=== PATIENT | male | born 1950 | race Caucasian/White ===

== ENCOUNTER → 2017-04-20 | Outpatient (CLI) | payer MEDICARE, OTHER | END | disposition home or self-care (01) | LOC: GMAB 10:35 | PROVIDERS: ATTEND Family Medicine | DX: Z12.5 Encounter for screening for malignant neoplasm of prostate (principal); I10 Essential (primary) hypertension; R53.83 Other fatigue | CPT/HCPCS: 84403; 84443; 84550; G0103 ==

== ENCOUNTER → 2017-04-26 | Outpatient (CLI) | payer MEDICARE, OTHER ==
--- NOTE | 2017-04-29 18:40 | MRI ---
EXAM DESCRIPTION: Lumbar Spine w/o Contrast CLINICAL HISTORY: LUMBAR RADICULOPATHY COMPARISON: None. TECHNIQUE: Multiplanar, multiple standard sequences, non contrast MRI, lumbar spine. FINDINGS: L5-S1: Disc desiccation. Posterior broad-based 3 mm bulge. Left-sided grade 1 Modic endplate reaction with disc spur bulge into the left foramen with foraminal stenosis possible impingement left L5 nerve. Moderate right foraminal narrowing abutting the right L5 nerve.. Bilateral posterior flavum ligament hypertrophy. L4-5: Disc desiccation with anterior bulging and endplate ridging, Modic type II endplate reactive changes. Minimal posterior disc space loss. Posterior broad-based 4 mm disc bulge with left paracentral 7 mm protrusion impressing on the thecal sac and the descending left L5 nerve. Bilateral flavum ligament hypertrophy. Grade 1 retrolisthesis. Left paracentral AP canal diameter 9 mm. Moderate to severe left foraminal narrowing. Moderate right foraminal narrowing. L3-4: Moderate disc desiccation and disc space loss in the midline into the right of midline. Modic type II endplate reactive changes midline to the right of midline. Anterior disc bulge and endplate ridging. Posterior L4 Schmorl's node. Posterior mild broad-based disc bulge with midline annular fissure. Grade 1 anterolisthesis. Disc spur complex on the right encroaching on the right foramen with mild stenosis and impingement of the exiting right L3 nerve. Mild to moderate left foraminal narrowing. L2-3: Disc desiccation with anterior bulging and endplate ridging. Trace retrolisthesis. Tiny posterior bulge. Bilateral mild facet hypertrophy and posterior ligament hypertrophy mild left foraminal narrowing mild to moderate right foraminal narrowing. No canal stenosis. L1-2: Anterior disc bulge and endplate ridging. Moderate disc space loss and disc desiccation. Tiny posterior bulge midline bulge abutting the thecal sac. Minimal hypertrophy of the flavum ligaments. No significant foraminal narrowing. Mild canal narrowing. T12-L1: Minimal disc desiccation with no disc space loss. Tiny anterior bulge. Conus terminates at L1. Foramina are patent. Minimal flavum ligament hypertrophy. Mild canal narrowing. L2-L4 levoscoliosis. Paravertebral soft tissues are unremarkable.. Normal marrow signal in the remaining vertebral bodies and the posterior elements. Vertebral bodies are not compressed at any level. IMPRESSION: 1. Spondylosis on the left at L5-S1 with encroachment on the left neural foramen and possibly left L5 nerve. Correlate for left L5 radiculopathy. 2. Moderate spondylosis L4-5. Left paracentral disc protrusion encroaching on the thecal sac and the descending left L5 nerve. Correlate for left L5 radiculopathy. Mild canal stenosis. Grade 1 retrolisthesis. 3. Moderate spondylosis at L3-4 midline and to the right of midline. Grade 1 anterolisthesis. Posterior broad-based disc bulge, disc spur complex encroaching on the right L3 nerve in the foramina. Correlate for right L3 radiculopathy. Electronically signed by: Oswaldo Fields MD 04/29/2017 6:39 PM CDT
== END ==
LOC: MRI 08:53
PROVIDERS: ATTEND Family Medicine
DX: M47.27 Other spondylosis with radiculopathy, lumbosacral region (principal); M51.16 Intervertebral disc disorders with radiculopathy, lumbar region

== ENCOUNTER 2017-06-02 07:41 | Emergency (ER) | payer MEDICARE, OTHER ==
--- NOTE | 2017-06-02 07:52 | ED.PDOC ---
History of Present Illness - General Chief Complaint: Neuro Symptoms/Deficits Stated Complaint: L facial droop and L arm weakness Time Seen by Provider: 06/02/17 07:43 Source: patient, RN notes reviewed, Vital Signs reviewed, family Exam Limitations: no limitations - History of Present Illness Initial Comments: Patient woke up at ~ 7:30 this morning and noticed that his left arm was not working right and his speech was off. Also noticed a left facial droop. No history of similar episodes in the past but his father did have a stroke. He did get up about 3am to go to the bathroom and did not notice any problems at that time. No ACEVEDO, chest pain or SOB Did see his doctor on and had what sounds like an epidural steroid injection for sciatica. Timing/Duration: 1/2 hour Severity: moderate Improving Factors: nothing Worsening Factors: nothing Associated Symptoms: slurred speech, weakness - left arm Allergies/Adverse Reactions: Allergies NO KNOWN ALLERGY Allergy (Verified 06/02/17 07:43) Review of Systems - Review of Systems Constitutional: States: no symptoms reported. Denies: chills, fever Respiratory: States: no symptoms reported. Denies: cough, short of breath Cardiology: States: no symptoms reported. Denies: chest pain Gastrointestinal/Abdominal: States: no symptoms reported Musculoskeletal: States: see HPI Skin: States: no symptoms reported Neurological: States: weakness - L facial droop and L arm weakness, other - slurred speech All other Systems: No Change from Baseline Family Medical History - Family History Father Living Status: Hx Family Stroke: Yes Physical Exam - Physical Exam General Appearance: Alert, Comfortable, No apparent distress, Well Developed, Well Groomed, Well Hydrated, Well Nourished Eye Exam: bilateral normal ENT Exam: normal ENT inspection, hearing grossly normal Neck: non-tender, full range of motion, supple, normal inspection Respiratory: lungs clear, normal breath sounds, no respiratory distress, no accessory muscle use Cardiovascular/Chest: normal peripheral pulses, regular rate, rhythm, no edema, no gallop, no JVD, no murmur Peripheral Pulses: dorsalis pedis,right: 2+, dorsalis pedis,left: 2+ Gastrointestinal/Abdominal: normal bowel sounds, non tender, soft, no organomegaly, no pulsatile mass Extremities Exam: non-tender, normal range of motion, no evidence of injury Mental Status: alert, oriented x 3 head banquet waiter/waitress Exam: normal hearing, PERRL, abnormal speech - slurred, facial droop - Left Coordination/Gait: abnormal gait - slightly unsteady Motor/Sensory: no sensory deficit, pronator drift (L), weak motor strength LUE Skin Exam: normal color, warm/dry Comments: Vital Signs 06/02/17 07:52 Temperature 97.5 F L Pulse Rate [ 69 Left Radial] Respiratory 18 Rate Blood Pressure 183/108 [Right Arm] O2 Sat by Pulse 96 Oximetry Progress - Progress Progress: 06/02/17 08:[address] Polanco with the tele-neurologiy service. Since last known well was 3am it is too late for TpA. Will transfer to [facility]. Spoke with Dr. Shaikh @ [place] who accepted patient in transfer. - Results/Orders Results/Orders: Laboratory Tests 06/02/17 06/02/17 06/02/17 08:10 08:10 08:10 WBC 8.0 RBC 4.95 Hgb 15.0 Hct 45.3 MCV 91.6 MCH 30.3 MCHC 33.1 RDW 14.7 H Plt Count 143 MPV 9.2 Absolute Neuts (auto) 6.10 Absolute Lymphs (auto) 1.60 Absolute Monos (auto) 0.40 Absolute Eos (auto) 0.00 Absolute Basos (auto) 0.00 Neutrophils % 75.4 Lymphocytes % 19.3 L Monocytes % 4.9 Eosinophils % 0.1 L Basophils % 0.3 PT 10.5 INR 0.930 PTT (SP) 27.6 Sodium 138 Potassium 4.1 Chloride 104 Carbon Dioxide 26 Anion Gap 12.1 BUN 18 Creatinine 0.71 BUN/Creatinine Ratio 25.4 H Random Glucose 108 H Serum Osmolality 278.1 Calcium 9.5 Total Bilirubin 0.5 AST 32 ALT 34 Alkaline Phosphatase 57 Creatine Kinase Troponin I Serum Total Protein 7.3 Albumin 4.5 Globulin 2.8 Albumin/Globulin Ratio 1.6 06/02/17 08:10 WBC RBC Hgb Hct MCV MCH MCHC RDW Plt Count MPV Absolute Neuts (auto) Absolute Lymphs (auto) Absolute Monos (auto) Absolute Eos (auto) Absolute Basos (auto) Neutrophils % Lymphocytes % Monocytes % Eosinophils % Basophils % PT INR PTT (SP) Sodium Potassium Chloride Carbon Dioxide Anion Gap BUN Creatinine BUN/Creatinine Ratio Random Glucose Serum Osmolality Calcium Total Bilirubin AST ALT Alkaline Phosphatase Creatine Kinase 149 Troponin I < 0.02 Serum Total Protein Albumin Globulin Albumin/Globulin Ratio - EKG/XRAY/CT EKG: Daryn, Sinus, nonspecific ST T wave Chg Comments: Rate 55 - normal per patient CT Ordered: Yes - No acute intracrainial abnormality per Radiologist Stroke Information - Onset of Symptoms Symptoms of Stroke: Aphasia, Weakness of limb Stroke Onset of Symptoms Date: 06/02/17 Stroke Onset of Symptoms Time: 07:30 - Last known well was 3am - Contraindications Antithrombotic Contraindication: Medical Contraindication t-PA Contraindication: Medical Contraindication - Last known well 03:00 too late Departure - Departure Clinical Impression: Cerebrovascular accident Qualifiers: CVA mechanism: unspecified Qualified Code(s): I63.9 - Cerebral infarction, unspecified Time of Disposition: 08:40 Disposition: Transfer to Hospital Referrals: Tl Muhammad MD [Primary Care Provider] - 1-2 Weeks Transfer to Outside Facility - Transfer Information Accepting Provider:: Dr. Shaikh Accepting Facility: [place] Reason for Transfer: required specialist not available
--- NOTE | 2017-06-02 08:06 | CT ---
PROCEDURE: Head HISTORY: left arm weakness, difficulty speaking Indication: Same as above Comparison: None Technique: CT of the head was done without intravenous contrast was done in the axial plane only This exam was performed according to our departmental dose-optimization program, which includes automated exposure control, adjustment of the mA and/or KV according to the patient's size and/or use of iterative reconstruction technique. FINDINGS: There is no intracranial hemorrhage, midline shift mass effect or acute focal infarct. If clinical concern exists regarding an acute ischemic/vascular pathology being responsible for patient's symptomatology, an MRI of the brain is more sensitive than the current study, in ruling out such a possibility. There is good szymanski/white matter differentiation. The ventricular system is normal. The mastoid air cells are unremarkable . The paranasal sinuses are unremarkable . There is no visualization of acute fractures involving the calvarium or the skull base. IMPRESSION: There is no acute intracranial abnormality. Electronically signed by: Jerry Lockhart MD 06/02/2017 8:04 AM CDT Workstation: [id number]
--- NOTE | 2017-06-02 08:52 | ED.PDOC ---
History of Present Illness - General Chief Complaint: Neuro Symptoms/Deficits Stated Complaint: L facial droop and L arm weakness Time Seen by Provider: 06/02/17 07:43 Additional Information: [facility] Note Demographics Consult Type Phone Only First Name Royer Last Name Obed Date of 1950 Age: 67 Gender Male Time of initial page ([place] Time): 06/02/2017 07:17 Time of return call ([place] Time): 06/02/2017 07:19 Time Ready to Initiate Telemed Consult ([place] Time): 06/02/2017 07:19 Phone Only Consult (freetext) 67 yo man who woke up at 7:30 and noted slurred speech and L arm weak, facial droop. He got up at 3am and was normal at that time. Pt also had an epidural steroid injection 2 days ago. he is on antiplatelet tx for CAD with stents. At this point, he is out of the time window for IV tpa as he is over 4.5 hours from last normal at 3am. He may be a candidate for IA therapy if he has a large vessel thrombus though his NIHSS may be a bit low. Transfer to [place] is requested for further neurologic evaluation and CTA. Transfer center to make further arrangements. Keep BP permissive en route. - History of Present Illness Allergies/Adverse Reactions: Allergies NO KNOWN ALLERGY Allergy (Verified 06/02/17 07:43) Past Medical History (General) - Patient Medical History Hx Stroke: No Hx Cardiac Disorders: Yes - VT Hx Congestive Heart Failure: No Hx Hypertension: Yes Hx Diabetes: No Surgical History: other - Vaccination History Hx Influenza Vaccination: Yes - 2015 Hx Pneumococcal Vaccination: Yes - Social History Hx Tobacco Use: No Hx Alcohol Use: No Family Medical History - Family History Father Living Status: Hx Family Stroke: Yes Progress - EKG/XRAY/CT CT Ordered: Yes - No acute intracrainial abnormality per Radiologist CT Interpretation Call Back: No Stroke Information - Onset of Symptoms Stroke Onset of Symptoms Date: 06/02/17 Stroke Onset of Symptoms Time: 07:30 - Last known well was 3am Departure - Departure Clinical Impression: Cerebrovascular accident Qualifiers: CVA mechanism: unspecified Qualified Code(s): I63.9 - Cerebral infarction, unspecified Disposition: Transfer to Hospital Referrals: Tl Muhammad MD [Primary Care Provider] - 1-2 Weeks
[2017-06-02 09:26] VITALS: BP 150/97; TEMP 97; O2SAT 96
== END 2017-06-02 09:40 | disposition short-term general hospital (02) ==
LOC: ER 07:41
DX: I63.9 Cerebral infarction, unspecified (principal)

== ENCOUNTER → 2019-05-27 | Outpatient (CLI) | payer MEDICARE, OTHER | LOC: GMAE 11:15 | PROVIDERS: ATTEND Family Medicine | DX: I10 Essential (primary) hypertension (principal); Z12.5 Encounter for screening for malignant neoplasm of prostate | CPT/HCPCS: 84443; G0103 ==

== ENCOUNTER → 2019-06-25 | Outpatient (CLI) | payer MEDICARE, OTHER | LOC: GMAE 10:49 | PROVIDERS: ATTEND Family Medicine | DX: I25.10 Atherosclerotic heart disease of native coronary artery without angina pectoris (principal); E78.2 Mixed hyperlipidemia ==

== ENCOUNTER → 2020-05-04 | Outpatient (CLI) | payer MEDICARE, OTHER | LOC: GMAE 10:49 | PROVIDERS: ATTEND Family Medicine | DX: Z12.5 Encounter for screening for malignant neoplasm of prostate (principal); I10 Essential (primary) hypertension; E78.2 Mixed hyperlipidemia | CPT/HCPCS: 84443; G0103 ==

== ENCOUNTER 2020-09-15 05:46 | Day surgery (SDC) | payer MEDICARE, OTHER ==
[2020-09-15] MEDS ORDERED: LACTATED RINGERS 1,000 ML ONE (06:43)
[2020-09-15] MEDS ORDERED: PROPOFOL 200 MG/20 ML VIAL IV ONE (07:00)
[2020-09-15] MEDS ORDERED: LIDOCAINE 1% 10 ML VIAL INJ ONE (07:00)
[2020-09-15] MEDS ORDERED: LACTATED RINGERS 600 ML IVS ONE (08:34)
--- NOTE | 2020-09-15 09:18 | OP ---
DATE OF PROCEDURE: 09/15/20 PREPROCEDURE DIAGNOSIS: 1. Personal history of colon polyps. Last colonoscopy was 5 years ago. POSTPROCEDURE DIAGNOSIS: 1. Colon polyp. 2. Diverticulosis. 3. Internal hemorrhoids. PROCEDURE: 1. Colonoscopy with snare polypectomy. SURGEON: Karan Fleming MD. SEDATION: Monitored anesthesia care. ESTIMATED BLOOD LOSS: Less than 5 mL. COMPLICATIONS: None. PROCEDURE: Informed consent was obtained prior to sedation. The preprocedure cardiopulmonary assessment was satisfactory. The patient was brought to the Endoscopy Suite and placed in the left lateral decubitus position. The patient was then sedated by the anesthesia team. Digital rectal and perianal exams were normal. The tip of the Olympus colonoscope was inserted into the rectum and advanced under direct visualization to the terminal ileum. The endoscope was slowly withdrawn. In the transverse colon, there was a 1 cm flat polyp. This was resected with hot snare polypectomy and retrieved for pathology. In the sigmoid colon and descending colon, there were multiple diverticula. Retroflexed view of the rectum showed medium sized, non-bleeding internal hemorrhoids. The endoscope was then withdrawn from the patient and the procedure terminated. RECOMMENDATION: 1. Discharge the patient home with escort. 2. Resume previous diet. 3. Resume home medications. 4. Followup pathology. 5. Surveillance colonoscopy in 3 years. #[id number] MTDD
[2020-09-15 09:44] VITALS: BP 130/86; TEMP 96.8; O2SAT 97
== END 2020-09-15 09:40 | disposition home or self-care (01) ==
LOC: AMB 05:46
PROVIDERS: ATTEND Internal Medicine Gastroenterology
DX: Z12.11 Encounter for screening for malignant neoplasm of colon (principal); D12.3 Benign neoplasm of transverse colon; K57.30 Diverticulosis of large intestine without perforation or abscess without bleeding; K64.8 Other hemorrhoids; I10 Essential (primary) hypertension; E78.00 Pure hypercholesterolemia, unspecified; M10.9 Gout, unspecified; Z86.010 Personal history of colon polyps; Z79.82 Long term (current) use of aspirin; Z79.899 Other long term (current) drug therapy
CPT/HCPCS: 00812; 45385; 88305; J3490; J7120